=== PATIENT | female | born 1985 | race Caucasian/White ===

== ENCOUNTER 2017-02-03 16:53 | Emergency (ER) | payer SELFPAY ==
[~2017-02-03] VITALS: Ht 152.4 cm; Wt 49.3 kg
--- NOTE | 2017-02-03 16:58 | NUR ---
PD ARRIVES SEPARATE FROM PT TO INFORM US OF PT SITUATION. CL
--- NOTE | 2017-02-03 17:20 | NUR ---
PT UNABLE TO VOID AT THIS TIME. VERBAL OK FROM DR EDMONDS FOR PT TO HAVE MT DEW FROM MOTHER WHO IS AT BEDSIDE. CL
--- NOTE | 2017-02-03 17:23 | NUR ---
DURING PHYSICIAN EXAM, PT DENIES EVER STATING SHE WAS GOING TO DRINK ANY DRAINO STATING "I DON'T EVEN OWN ANY DRAINO....HE (CJ) TOLD HIS MOM THAT....I NEVER SAID THAT". CL
[2017-02-03 17:30] LABS: BASOPHILS % (AUTO) 0 % (0-2); EOSINOPHILS # (AUTO) 0.3 10^3uL; EOSINOPHILS % (AUTO) 4 % (0-4); LYMPHOCYTES # (AUTO) 2.4 X10^3; MEAN CORPUSCULAR HEMOGLOBIN 30.2 PG (26.0-34.0); MEAN CORPUSCULAR HGB CONC 34.2 g/dL (31.0-37.0); MEAN CORPUSCULAR VOLUME 88 FL (80-100); MEAN PLATELET VOLUME 10.3 FL (6.0-9.5); MONOCYTES # (AUTO) 0.7 X10^3; MONOCYTES % (AUTO) 9 % (3-11); NEUTROPHILS # (AUTO) 5.2 X10^3; NEUTROPHILS % (AUTO) 60 % (51-67); PLATELET COUNT 180 10^3uL (150-450); WHITE BLOOD COUNT 8.63 10^3uL (4.0-11.0)
[2017-02-03] MEDS ORDERED: LORazepam 2 MG/ML (ATIVAN) 1 ML VIAL IM ONE (17:30)
--- NOTE | 2017-02-03 17:36 | NUR ---
PT ASKS THIS RN "ARE YOU GOING TO SEND ME AWAY.....I JUST WANT TO GO HOME & GO TO BED". PT STATES "ALL I'VE BEEN DOING IS SLEEPING". MOTHER VERIFIES THIS STATEMENT. CL
[2017-02-03 17:43] LABS: ALBUMIN 4.4 g/dL (3.4-5.0); ALKALINE PHOSPHATASE 100 U/L (38-126); ANION GAP 15.5 MEQ/L (3-15); BUN/CREATININE RATIO 21 (10-20); CALCULATED IONIZED CALCIUM 4.1 mg/dL (3.8-4.6); TOTAL PROTEIN 7.9 g/dL (6.4-8.5)
--- NOTE | 2017-02-03 18:01 | NUR ---
[facility] CALLED TO REQUEST A PSYCH SCREEN. CL
--- NOTE | 2017-02-03 18:02 | NUR ---
SPOKE WITH MAYO FROM [facility], WE WILL ATTEMPT A TELE SCREEN WITH HIM AT 1810 ON THE IPAD. HE REQUESTS FACE SHEET AND SUMMARY SENT TO HIS FAX. PAPERWORK FAXED.
--- NOTE | 2017-02-03 18:05 | NUR ---
PT STATES SHE WILL NOT GIVE A URINE SPECIMEN. PT WORRIED & DOES NOT WANT TO GO TO [facility]. CL
--- NOTE | 2017-02-03 18:10 | NUR ---
MAYO, SCREENER WITH [facility] CONNECTED VIA [employer]. IPAD BROUGHT INTO PT ROOM, PT IS SPEAKING WITH HIM NOW.
--- NOTE | 2017-02-03 18:32 | NUR ---
AFTER TALKING WITH PT & THEN PT MOTHER, MAYO CALLS TO TALK WITH DR EDMONDS. CL
--- NOTE | 2017-02-03 18:52 | NUR ---
REPORT GIVEN TO KARISHMA OLVERA RN & CARE TSF TO [facility]. CL
--- NOTE | 2017-02-03 19:31 | NUR ---
Pt stated that while urinating she forgot to get it in the cup. She agreed to be cathed if it would get her home sooner. Dr. Franco agreed to the catheter. I was able to obtain just enough urine for the UDS. Pt to be discharged once the results are back per Dr. Franco.
[2017-02-03 19:46] LABS: AMPHETAMINE SCREEN, URINE Positive (Negative); CANNABINOID SCREEN, URINE Positive (Negative); METHAMPHETAMINE SCREEN URINE S POSITIVE (NEGATIVE); OPIATE SCREEN URINE Negative (Negative)
[2017-02-03 19:47] LABS: PROPOXYPHENE STAT NEGATIVE (NEGATIVE)
[2017-02-03 19:53] VITALS: BP 123/76
== END 2017-02-03 19:54 | disposition home or self-care (01) ==
LOC: ED 16:54
DX: F33.8 Other recurrent depressive disorders (principal); S41.112A Laceration without foreign body of left upper arm, initial encounter; X58.XXXA Exposure to other specified factors, initial encounter; Z91.5 Personal history of self-harm
CPT/HCPCS: 36415; 80053; 80307; 80320; 80329; 84443; 84703; 85025; 85610; 96372; 99284; J2060

== ENCOUNTER 2017-02-04 21:33 | Emergency (ER) | payer SELFPAY ==
[~2017-02-04] VITALS: Ht 152.4 cm; Wt 54.5 kg
[2017-02-04 22:01] LABS: BASOPHILS % (AUTO) 0 % (0-2); EOSINOPHILS # (AUTO) 0.1 10^3uL; EOSINOPHILS % (AUTO) 1 % (0-4); LYMPHOCYTES # (AUTO) 2.1 X10^3; MEAN CORPUSCULAR HEMOGLOBIN 30.1 PG (26.0-34.0); MEAN CORPUSCULAR VOLUME 89 FL (80-100); MEAN PLATELET VOLUME 10.5 FL (6.0-9.5); MONOCYTES # (AUTO) 0.7 X10^3; MONOCYTES % (AUTO) 6 % (3-11); NEUTROPHILS # (AUTO) 8.8 X10^3; NEUTROPHILS % (AUTO) 75 % (51-67); PLATELET COUNT 201 10^3uL (150-450); WHITE BLOOD COUNT 11.73 10^3uL (4.0-11.0)
[2017-02-04 22:11] LABS: ALBUMIN 4.6 g/dL (3.4-5.0); ALKALINE PHOSPHATASE 105 U/L (38-126); ANION GAP 15.3 MEQ/L (3-15); BUN/CREATININE RATIO 19 (10-20); CALCULATED IONIZED CALCIUM 3.9 mg/dL (3.8-4.6); TOTAL PROTEIN 8.4 g/dL (6.4-8.5)
[2017-02-04 23:19] LABS: AMPHETAMINE SCREEN, URINE Positive (Negative); CANNABINOID SCREEN, URINE Negative (Negative); METHAMPHETAMINE SCREEN URINE S NEGATIVE (NEGATIVE); OPIATE SCREEN URINE Positive (Negative); PROPOXYPHENE STAT NEGATIVE (NEGATIVE)
[2017-02-04] MEDS ORDERED: ALPRAZolam 0.25 MG (XANAX) TAB PO ONE (23:25)
[2017-02-04 23:30] VITALS: BP 129/93
== END 2017-02-04 23:30 | disposition home or self-care (01) ==
LOC: ED 21:34
DX: F33.8 Other recurrent depressive disorders (principal); F41.1 Generalized anxiety disorder; Z72.0 Tobacco use
CPT/HCPCS: 36415; 80053; 80307; 80320; 80329; 85025; 99283; 99284

== ENCOUNTER 2017-03-03 17:35 | Emergency (ER) | payer SELFPAY ==
[~2017-03-03] VITALS: Ht 160 cm; Wt 49.9 kg
[~2017-03-03 17:35] MED LIST: ALPR.25T PO; AMOX500C5 PO; AZIT250T81 PO; BENZ200C43 PO; CEPH-331 PO; CITA10SO PO; CITA10TA4 PO; CODE-54 PO; CTLP20T PO; HYDR-3702 PO; MDR10T PO; METR500T17 PO; NF-TORA10 PO; ONDA4TAB11 PO; no medications
[2017-03-03] MEDS ORDERED: HYDROcodone/APAP 5 MG/325 MG (NORCO) TAB PO ONE (17:45)
--- NOTE | 2017-03-03 17:51 | NUR ---
PT DRINKING HER OWN ENERGY DRINK FROM OUT SIDE. CL
--- NOTE | 2017-03-03 17:51 | NUR ---
ANOTHER FEMALE & CHILD AT BEDSIDE. CL
--- NOTE | 2017-03-03 18:20 | Diagnostic Imaging Report ---
INDICATION: Right knee pain. EXAMINATION: Four views of the right knee were obtained. FINDINGS: No fracture, dislocation or other acute abnormalities. IMPRESSION: Negative right knee. Dictated by: Dictated on workstation # [id number]
[2017-03-03] MEDS ORDERED: TRM50T PO (18:22)
[2017-03-03 18:31] VITALS: BP 116/78
== END 2017-03-03 18:28 | disposition home or self-care (01) ==
LOC: ED 17:37
DX: S80.01XA Contusion of right knee, initial encounter (principal); W10.8XXA Fall (on) (from) other stairs and steps, initial encounter; Y92.009 Unspecified place in unspecified non-institutional (private) residence as the place of occurrence of the external cause
CPT/HCPCS: 73564; 99283

== ENCOUNTER 2017-04-08 14:05 | Emergency (ER) | payer SELFPAY ==
[~2017-04-08] VITALS: Ht 160 cm; Wt 50.9 kg
[~2017-04-08 14:05] MED LIST changes: +TRM50T PO
[2017-04-08] MEDS ORDERED: LIDOCAINE/EPINEPHRINE 1% 1:100,000 (XYLOCAINE) 30 ML VIAL INJ ONE (14:30)
[2017-04-08] MEDS ORDERED: KETOROLAC 60 MG/2 ML (TORADOL) VIAL IM ONE (14:30)
[2017-04-08] MEDS ORDERED: LIDOCAINE/EPINEPHRINE 1%-1:100,000 (XYLOCAINE) 20ML VIAL TOP ONE (14:35)
[2017-04-08] MEDS ORDERED: BACITRACIN OINTMENT 0.9 GM PACKET TOP ONE (15:05)
[2017-04-08] MEDS ORDERED: CEPH-331 PO (15:30)
--- NOTE | 2017-04-08 16:04 | Diagnostic Imaging Report ---
INDICATION: Injury to right shoulder. TECHNIQUE: AP, oblique, and transscapular views of the right shoulder were obtained. FINDINGS: No fracture or acute bony abnormality is seen. The glenohumeral joint and AC joint appear unremarkable. IMPRESSION: Negative right shoulder. Dictated by: Dictated on workstation # [id number]
[2017-04-08 16:17] VITALS: BP 110/69
== END 2017-04-08 16:19 | disposition home or self-care (01) ==
LOC: ED 14:07
DX: S41.111A Laceration without foreign body of right upper arm, initial encounter (principal); M25.511 Pain in right shoulder; X58.XXXA Exposure to other specified factors, initial encounter
CPT/HCPCS: 12002; 73030; 96372; 99283; J1885